=== PATIENT | female | born 1945 | race Caucasian/White ===

== ENCOUNTER 2017-08-31 16:24 | Emergency (ER) | payer MEDICARE ==
[~2017-08-31 16:24] MED LIST: Iopamidol 370 76% 100 ML VIAL ONE
[2017-08-31 17:21] LABS: #Basophils 0.1 thou/uL (0.0-0.2); #Eosinphils 0.4 thou/uL (0.0-0.7); #Lymphocytes 2.1 thou/uL (1.20-3.40); #Monocytes 0.6 thou/uL (0.11-0.59); #Neutrophils 3.4 thou/uL (1.40-6.50); %Basophils 0.8 % (0.0-1.0); %Eosinophils 5.9 % (0.0-10.0); %Lymphocytes 31.8 % (21.0-51.0); %Monocytes 8.8 % (0.0-10.0); %Neutrophils 52.7 % (42.0-75.0); Hemoglobin 13.1 g/dL (12.0-16.0); Mean Corpuscular HGB CONC 33.8 g/dL (32.0-36.0); Mean Corpuscular Hemoglobin 30.9 pg (27.0-31.0); Mean Corpuscular Volume 91.3 fl (81.0-99.0); Mean Platelet Volume 6.7 fL (7.4-10.4); Platelet Count 275 thou/uL (130-400); RBC Distribution Width 11.4 % (11.5-14.5); Red Blood Cell (RBC) Count 4.24 mill/uL (4.20-5.40); White Blood Cell (WBC) Count 6.5 thou/uL (4.8-10.8)
[2017-08-31 17:41] LABS: ALT (SGPT) 15 U/L (8-55); AST (SGOT) 16 U/L (5-34); Albumin 4.5 g/dL (3.4-4.8); Alkaline Phosphatase 75 U/L (40-150); Anion Gap 14 mmol/L (10-20); BUN (Urea Nitrogen) 16 mg/dL (9.8-20.1); Bilirubin, Total 0.6 mg/dL (0.2-1.2); Calc. Creatinine Clearance 0 mL/min (70-130); Calcium 10.2 mg/dL (7.8-10.44); Carbon Dioxide 29 mmol/L (23-31); Chloride 101 mmol/L (98-107); Estimated GFR-MDRD 47; Globulin 2.8 g/dL (2.4-3.5); Glucose 149 mg/dL (83-110); Potassium 3.8 mmol/L (3.5-5.1); Protein, Total 7.3 g/dL (6.0-8.3); Sodium 140 mmol/L (136-145)
[2017-08-31 18:18] LABS: CKMB 5.2 ng/mL (0-6.6); Troponin I Less than 0.010 ng/mL (< 0.028)
--- NOTE | 2017-08-31 20:06 | CT ---
CT OF THE CHEST WITH IV CONTRAST AND 3D POSTPROCESSING CT OF THE ABDOMEN WITH IV CONTRAST AND 3D POSTPROCESSIN08/31/17 HISTORY: Abdominal pain. Aortic aneurysm. FINDINGS: There is a 5.5 cm infrarenal abdominal aortic aneurysm with mural thrombus. No dissection is seen. Th e delayed images demonstrate no change in size or extravascular extravasation. No periaortic soft tis trinity density or hemorrhage is seen. There are bullous changes in the lungs. No pericardial or pleural effusions are identified. There is evidence of old granulomatous disease in the thorax, liver and spleen. No free air or free fluid is s een in the abdomen. No calcified gallstones are identified. Adrenal glands and kidneys are normal. Th ere are postop changes in the lumbar spine. IMPRESSION: 5.5 cm infrarenal abdominal aortic aneurysm. POS: CHETNA
== END 2017-08-31 20:45 | disposition home or self-care (01) ==
LOC: ERS 16:24
DX: I71.4 Abdominal aortic aneurysm, without rupture (principal); I10 Essential (primary) hypertension; Z79.899 Other long term (current) drug therapy; Z79.82 Long term (current) use of aspirin
CPT/HCPCS: 71275; 80053; 82553; 84484; 85025; 85730; 86850; 86900; 86901; 93005

== ENCOUNTER 2017-09-04 16:50 | Outpatient (CLI) | payer MEDICARE ==
--- NOTE | 2017-09-04 18:48 | CT ---
CT ANGIOGRAM OF THE ABDOMEN AND PELVIS WITH AND WITHOUT CONTRAST 09/04/17 COMPARISON: 08/31/17. HISTORY: Abdominal aortic aneurysm noted on recent CT, pain. TECHNIQUE: Serial axial CT imaging at 2.5 mm intervals from the lung bases through the pubic symphysis with and without IV contrast. Coronal and sagittal 3D reformatted imaging of the postcontrast images provided. FINDINGS: The imaged lung bases demonstrate no acute findings. Lung parenchyma is better assessed on the 8 CT. Precontrast imaging demonstrates no evidence for nephrolithiasis on either side. No free intraperitoneal air or fluid is seen. There is scattered atherosclerotic calcifications as well as scattered noncalcified plaque within the distal aspect of the thoracic aorta. At the level of the diaphragmatic hiatus, the abdominal aorta m easures 3.3 x 3.5 cm in AP/transverse dimension. Evaluation of the viscera is limited secondary to timing of the contrast bolus to maximize arterial e nhancement. Splenic granulomata noted. No acute findings are seen within the liver, gallbladder, panc reas, adrenals glands, or kidneys. The right kidney is relatively small compared to the left. There i s fatty atrophy of the pancreas. Limited assessment of the bowel without oral contrast media demonstrates sigmoid diverticulosis. No e vidence for bowel inflammatory change or obstruction. The imaged upper right thigh demonstrates a subcutaneous cyst laterally on the right measuring 2.6 cm . No retroperitoneal, pelvic or mesenteric lymphadenopathy is seen. The celiac artery origin is patent with no hemodynamically significant stenosis. However, there is an area of kinking involving the proximal aspect of the celiac access approximately 2.3 cm beyond its o rigin where there is a focal area of severe narrowing of the celiac axis. The superior mesenteric art cadence is patent with no hemodynamically significant stenosis seen. There are two patent left renal arteries, emanating from the abdominal aorta on image 47 and 50 respe ctively. A patent right renal artery is seen on axial image 49 with a probably tiny accessory right r enal artery seen on image 53. At the axial level of the SMA origin, the abdominal aorta measures 2.7 cm in transverse dimension. At the level of the renal artery origins, the abdominal aorta measures 3. 5 x 3.7 cm. there is prominent aneurysmal dilatation of the infrarenal abdominal aorta, aneurysm nani uring up to 5.3 x 5.4 cm. There is a large amount of eccentric plaque within the aneurysm, the contra st opacified portion of the aneurysm measuring in the 2.8 x 2.8 cm range. Aneurysm extends to the lev el of the abdominal aortic bifurcation. The common iliac arteries are patent, heavily calcified and t ortuous, particularly on the right. Bilateral internal and external iliac arteries are patent. The co mmon femoral arteries, and demonstrate relatively mild atherosclerotic calcification. Review of the osseous structures demonstrate a prominent multilevel degenerative change within the mi d/lower thoracic spine as well as throughout the lumbar spine. Postoperative hardware is seen at the L3, L4, L5, and S1 levels. No acute osseous abnormality. IMPRESSION: Extensive aneurysmal dilatation of the abdominal aorta, which measures up to 5.4 x 5.2 cm in the infr arenal region. POS: SANDRA
== END 2017-09-04 16:51 | disposition home or self-care (01) ==
LOC: CT 16:50
PROVIDERS: ATTEND Thoracic Surgery (Cardiothoracic Vascular Surgery)
DX: I71.4 Abdominal aortic aneurysm, without rupture (principal)
CPT/HCPCS: 74174

== ENCOUNTER 2017-10-04 10:00 | Inpatient (IN) | payer MEDICARE ==
[2017-10-04 11:08] LABS: Hemoglobin 12.6 g/dL (12.0-16.0); Mean Corpuscular HGB CONC 33.9 g/dL (32.0-36.0); Mean Corpuscular Hemoglobin 31.3 pg (27.0-31.0); Mean Corpuscular Volume 92.5 fl (81.0-99.0); Mean Platelet Volume 7.2 fL (7.4-10.4); Platelet Count 214 thou/uL (130-400); RBC Distribution Width 11.4 % (11.5-14.5); Red Blood Cell (RBC) Count 4.01 mill/uL (4.20-5.40); White Blood Cell (WBC) Count 5.7 thou/uL (4.8-10.8)
[2017-10-04 11:26] LABS: Anion Gap 12 mmol/L (10-20); BUN (Urea Nitrogen) 21 mg/dL (9.8-20.1); Calc. Creatinine Clearance 0 mL/min (70-130); Calcium 9.8 mg/dL (7.8-10.44); Carbon Dioxide 25 mmol/L (23-31); Chloride 106 mmol/L (98-107); Estimated GFR-MDRD 57; Glucose 99 mg/dL (83-110); Potassium 4.7 mmol/L (3.5-5.1); Sodium 138 mmol/L (136-145)
[2017-10-09] MEDS ORDERED: CEFAZOLIN/Water 2 GM/20 ML SYRINGE ONE (08:41)
[2017-10-09] MEDS ORDERED: Fentanyl 250 MCG/5 ML VIAL ONE (09:38)
[2017-10-09] MEDS ORDERED: Heparin 10,000 UNITS/1 ML VIAL 30,000 UNITS in Sodium Chloride 0.9% 1,000 ML FS SCH (09:40)
[2017-10-09] MEDS ORDERED: Sodium Chloride 0.9% 20 ML ONE (10:09)
[2017-10-09] MEDS ORDERED: Protamine Sulfate 50 MG/5 ML VIAL ONE (12:49)
--- NOTE | 2017-10-09 13:59 | OP ---
DATE OF PROCEDURE: 10/09/2017 PREOPERATIVE DIAGNOSIS: Abdominal aortic aneurysm. POSTOPERATIVE DIAGNOSIS: Abdominal aortic aneurysm. PROCEDURE: Aortic aneurysm repair with a straight #18 Hemashield graft. SURGEON: Jovany Arevalo M.D. CISSP: Dr. Martin Baldwin PROCEDURE IN DETAIL: After adequate anesthesia had been obtained, she was prepped and draped. Midli ne abdominal incision carried out. The bowel was rotated to the right and self-retaining retractor w as placed. The peritoneum overlying the aorta was incised and with the Bovie it was extended superio rly and inferiorly. Control of both common iliacs was obtained and then superiorly the aorta was con trolled just at the level of the left accessory renal artery. Following systemic heparinization, cla mps were applied just below the left accessory renal artery and both common iliacs. Four large lumba r arteries with significant bleeding were oversewn with silk sutures and this accounted for almost th e entire blood loss. Following this, a Hemashield graft was chosen and a proximal anastomosis perfor med with a 4-0 Prolene suture using interrupted pledgeted sutures on the posterior row as the aorta w as rather thin and then a running stitch anteriorly. Additional posterior sutures were required and after a good hemostatic suture line was completed, a running 4-0 Prolene suture was done at the dista l aorta just above the iliac bifurcation. Vessels were back flushed and forward flushed, following w hich flow was restored and then protamine was given systemically. After obtaining good hemostasis, t he aneurysm was closed over the graft and then reperitonealization was carried out. The bowel was re turned to the abdomen and a double stranded PDS suture was used to close the fascia. Subcutaneous ti ssue and skin were closed in layers and the patient is to be taken to the recovery room in [facility].
[2017-10-09] MEDS ORDERED: Nitroglycerin 50 MG/250 ML BOT 250 ML IVPB SCH (14:00)
[2017-10-09] MEDS ORDERED: Fentanyl 100 MCG/2 ML VIAL ONE ×4 (14:22→15:50)
[2017-10-09] MEDS ORDERED: HYDROmorphone 2 MG/ML VIAL SLOW IVP PRN (14:33)
[2017-10-09] MEDS ORDERED: Promethazine HCl 25 MG/ML VIAL IM PRN ×3 (14:33→16:37)
[2017-10-09] MEDS ORDERED: Ondansetron HCl/PF 4 MG/2 ML Vial IVP PRN ×2 (14:33→16:37)
[2017-10-09] MEDS ORDERED: Promethazine HCl 25 MG/ML VIAL SLOW IVP PRN ×2 (14:33→17:31)
[2017-10-09] MEDS ORDERED: Naloxone HCl 0.4 mg/ml Vial IV PRN (14:51)
[2017-10-09] MEDS ORDERED: diphenhydrAMINE 50 MG/ML VIAL IVP PRN (14:51)
[2017-10-09] MEDS ORDERED: diphenhydrAMINE 25 MG CAP PO PRN (14:51)
[2017-10-09] MEDS ORDERED: diphenhydrAMINE 50 MG/ML VIAL IM PRN (14:51)
[2017-10-09] MEDS ORDERED: Zolpidem Tartrate 5 MG TAB PO PRN (14:51)
[2017-10-09] MEDS ORDERED: Fentanyl 5000 MCG/250 ML CADD IVPB PRN (14:51)
[2017-10-09] MEDS ORDERED: Communication Order-Pharmacy FS SCH (15:00)
[2017-10-09] MEDS ORDERED: fentaNYL Citrate/PF 2,000 MCG in Sodium Chloride 0.9% 60 ML IV PRN (15:15)
[2017-10-09] MEDS ORDERED: PROPOFOL 200 MG/20 ML VIAL ONE (15:54)
[2017-10-09] MEDS ORDERED: Heparin 10,000 UNITS/ 10 ML VIAL ONE (15:54)
[2017-10-09] MEDS ORDERED: ePHEDrine/0.9% NaCl/PF SYRINGE 50 mg/10 ml ONE (15:54)
[2017-10-09] MEDS ORDERED: Protamine Sulfate 250 MG/25 ML VIAL ONE (15:54)
[2017-10-09] MEDS ORDERED: Nitroglycerin 50 MG/250 ML BOT ONE (15:54)
[2017-10-09] MEDS ORDERED: Labetalol 100 MG/20 ML MDV ONE (15:54)
[2017-10-09] MEDS ORDERED: Dexamethasone 20 MG/5 ML VIAL ONE (15:54)
[2017-10-09] MEDS ORDERED: Ondansetron HCl/PF 4 MG/2 ML Vial ONE (15:54)
[2017-10-09] MEDS ORDERED: Lidocaine 1% PF 5 ML VIAL ONE (15:54)
[2017-10-09 16:26] VITALS: BMI 31.5
[2017-10-09] MEDS ORDERED: Ketorolac Tromethamine 30 MG/ML VIAL IVP PRN (16:37)
[2017-10-09] MEDS ORDERED: DOPamine 400 MG/D5W 250 ML 250 ML IVPB PRN (16:37)
[2017-10-09] MEDS ORDERED: Fentanyl 100 MCG/2 ML VIAL SLOW IVP PRN (16:37)
[2017-10-09] MEDS ORDERED: Acetaminophen 325 MG TAB PO PRN (16:37)
[2017-10-09] MEDS: Lactated Ringer's 1,000 ML IV SCH (17:24)
[2017-10-09] MEDS: CEFAZOLIN/Water 2 GM/20 ML SYRINGE SLOW IVP SCH (17:24)
[2017-10-09 18:07] LABS: Hemoglobin 13.3 g/dL (12.0-16.0); Platelet Count 193 thou/uL (130-400)
[2017-10-09 18:26] LABS: Anion Gap 13 mmol/L (10-20); BUN (Urea Nitrogen) 14 mg/dL (9.8-20.1); Calc. Creatinine Clearance 63 mL/min (70-130); Calcium 8.9 mg/dL (7.8-10.44); Carbon Dioxide 21 mmol/L (23-31); Chloride 107 mmol/L (98-107); Estimated GFR-MDRD 51; Glucose 185 mg/dL (83-110); Potassium 4.5 mmol/L (3.5-5.1); Sodium 136 mmol/L (136-145)
[2017-10-09] MEDS: Ondansetron HCl/PF 4 MG/2 ML Vial IVP PRN (18:33)
[2017-10-09] MEDS: Famotidine/PF 20 mg/2ml Vial SLOW IVP SCH (21:36)
[2017-10-10] MEDS: Lactated Ringer's 1,000 ML IV SCH ×3 (00:32→20:30)
[2017-10-10] MEDS: CEFAZOLIN/Water 2 GM/20 ML SYRINGE SLOW IVP SCH ×2 (01:26→09:42)
[2017-10-10 03:26] LABS: #Monocytes 1.1 thou/uL (0.11-0.59); #Neutrophils 12.4 thou/uL (1.40-6.50); %Basophils 0.2 % (0.0-1.0); %Eosinophils 0.1 % (0.0-10.0); %Lymphocytes 6.9 % (21.0-51.0); %Monocytes 7.7 % (0.0-10.0); %Neutrophils 85.1 % (42.0-75.0); Hemoglobin 12.2 g/dL (12.0-16.0); Mean Corpuscular HGB CONC 33.6 g/dL (32.0-36.0); Mean Corpuscular Hemoglobin 31.5 pg (27.0-31.0); Mean Corpuscular Volume 93.8 fl (81.0-99.0); Mean Platelet Volume 6.5 fL (7.4-10.4); Platelet Count 190 thou/uL (130-400); RBC Distribution Width 11.8 % (11.5-14.5); Red Blood Cell (RBC) Count 3.87 mill/uL (4.20-5.40); White Blood Cell (WBC) Count 14.5 thou/uL (4.8-10.8)
[2017-10-10 03:46] LABS: Anion Gap 14 mmol/L (10-20); BUN (Urea Nitrogen) 15 mg/dL (9.8-20.1); Calc. Creatinine Clearance 64 mL/min (70-130); Calcium 9.2 mg/dL (7.8-10.44); Carbon Dioxide 27 mmol/L (23-31); Chloride 104 mmol/L (98-107); Estimated GFR-MDRD 51; Glucose 141 mg/dL (83-110); Potassium 5.2 mmol/L (3.5-5.1); Sodium 140 mmol/L (136-145)
[2017-10-10] MEDS: Levothyroxine Sodium 25 MCG TAB PO SCH (07:38)
[2017-10-10] MEDS: Levothyroxine Sodium 112 MCG TAB PO SCH (07:38)
[2017-10-10] MEDS ORDERED: Non-Formulary Item 1 EACH (Levothyroxine Sodium [Levothyroxine Sodium] 137 MCG) PO SCH (09:00)
[2017-10-10] MEDS: Aspirin 81 mg Enteric Coated Tablet PO SCH (09:43)
[2017-10-10] MEDS: Famotidine/PF 20 mg/2ml Vial SLOW IVP SCH ×2 (09:43→20:29)
[2017-10-10] MEDS: Acetaminophen 1,000 MG in Premix Bag 1 BAG IVPB SCH ×3 (12:58→23:52)
[2017-10-10] MEDS: Ondansetron HCl/PF 4 MG/2 ML Vial IVP PRN (20:14)
[2017-10-10] MEDS: Enoxaparin Sodium 40 MG/0.4 ML SYRINGE SC SCH (20:29)
[2017-10-11] MEDS: Lactated Ringer's 1,000 ML IV SCH ×3 (00:53→13:45)
[2017-10-11] MEDS: Ondansetron ODT 4 MG TAB PO PRN (02:10)
[2017-10-11] MEDS: Acetaminophen 1,000 MG in Premix Bag 1 BAG IVPB SCH (05:52)
[2017-10-11] MEDS: Levothyroxine Sodium 25 MCG TAB PO SCH (05:56)
[2017-10-11] MEDS: Levothyroxine Sodium 112 MCG TAB PO SCH (05:56)
[2017-10-11 06:17] LABS: #Lymphocytes 1.1 thou/uL (1.20-3.40); #Neutrophils 8.9 thou/uL (1.40-6.50); %Basophils 0.2 % (0.0-1.0); %Eosinophils 0.3 % (0.0-10.0); %Lymphocytes 9.9 % (21.0-51.0); %Monocytes 8.7 % (0.0-10.0); %Neutrophils 80.9 % (42.0-75.0); Hemoglobin 10.8 g/dL (12.0-16.0); Mean Corpuscular HGB CONC 33.6 g/dL (32.0-36.0); Mean Corpuscular Hemoglobin 31.4 pg (27.0-31.0); Mean Corpuscular Volume 93.5 fl (81.0-99.0); Platelet Count 157 thou/uL (130-400); RBC Distribution Width 11.5 % (11.5-14.5); Red Blood Cell (RBC) Count 3.44 mill/uL (4.20-5.40)
[2017-10-11 06:40] LABS: Anion Gap 11 mmol/L (10-20); BUN (Urea Nitrogen) 12 mg/dL (9.8-20.1); Calc. Creatinine Clearance 96 mL/min (70-130); Calcium 9.4 mg/dL (7.8-10.44); Carbon Dioxide 29 mmol/L (23-31); Chloride 101 mmol/L (98-107); Estimated GFR-MDRD 70; Glucose 124 mg/dL (83-110); Potassium 4.6 mmol/L (3.5-5.1); Sodium 136 mmol/L (136-145)
[2017-10-11] MEDS: Famotidine/PF 20 mg/2ml Vial SLOW IVP SCH ×2 (09:12→20:39)
[2017-10-11] MEDS: Aspirin 81 mg Enteric Coated Tablet PO SCH (09:34)
[2017-10-11] MEDS: Enoxaparin Sodium 40 MG/0.4 ML SYRINGE SC SCH (20:39)
[2017-10-12] MEDS: Ondansetron ODT 4 MG TAB PO PRN ×2 (00:03→21:37)
[2017-10-12] MEDS: Levothyroxine Sodium 112 MCG TAB PO SCH (05:17)
[2017-10-12] MEDS: Levothyroxine Sodium 25 MCG TAB PO SCH (05:17)
[2017-10-12] MEDS: Lactated Ringer's 1,000 ML IV SCH (05:18)
[2017-10-12] MEDS ORDERED: Lactated Ringer's 1,000 ML IV SCH (05:59)
[2017-10-12] MEDS: Aspirin 81 mg Enteric Coated Tablet PO SCH (09:00)
[2017-10-12] MEDS: Famotidine/PF 20 mg/2ml Vial SLOW IVP SCH ×2 (09:00→21:20)
[2017-10-12] MEDS ORDERED: HYDROcodone/Acetaminophen 7.5/325 mg Tablet PO PRN ×2 (09:40)
[2017-10-12] MEDS ORDERED: traMADol HCl 50 MG TAB PO PRN (09:41)
[2017-10-12] MEDS: Lisinopril 10 MG TAB PO SCH (21:19)
[2017-10-12] MEDS: Enoxaparin Sodium 40 MG/0.4 ML SYRINGE SC SCH (21:20)
[2017-10-12] MEDS: traMADol HCl 50 MG TAB PO PRN (21:30)
[2017-10-13] MEDS: Ondansetron ODT 4 MG TAB PO PRN (04:01)
[2017-10-13] MEDS: Levothyroxine Sodium 25 MCG TAB PO SCH (05:38)
[2017-10-13] MEDS: Levothyroxine Sodium 112 MCG TAB PO SCH (05:39)
[2017-10-13] MEDS: Lisinopril 10 MG TAB PO SCH ×4 (09:23→21:54)
[2017-10-13] MEDS: Aspirin 81 mg Enteric Coated Tablet PO SCH (09:24)
[2017-10-13] MEDS: traMADol HCl 50 MG TAB PO PRN (11:59)
[2017-10-13] MEDS: Famotidine/PF 20 mg/2ml Vial SLOW IVP SCH ×2 (12:02→21:54)
[2017-10-13] MEDS: Enoxaparin Sodium 40 MG/0.4 ML SYRINGE SC SCH (21:54)
[2017-10-13] MEDS: Acetaminophen 325 MG TAB PO PRN (21:55)
[2017-10-14] MEDS: traMADol HCl 50 MG TAB PO PRN ×2 (04:40→10:58)
[2017-10-14] MEDS: Acetaminophen 325 MG TAB PO PRN ×2 (04:40→09:37)
[2017-10-14] MEDS: Levothyroxine Sodium 25 MCG TAB PO SCH (06:02)
[2017-10-14] MEDS: Levothyroxine Sodium 112 MCG TAB PO SCH (06:02)
[2017-10-14 08:22] VITALS: BP 117/77; TEMP 98.3
[2017-10-14] MEDS: Aspirin 81 mg Enteric Coated Tablet PO SCH (09:32)
[2017-10-14] MEDS: Lisinopril 10 MG TAB PO SCH (09:32)
[2017-10-14] MEDS: Famotidine/PF 20 mg/2ml Vial SLOW IVP SCH (10:48)
--- NOTE | 2017-10-14 17:19 | DIS ---
DATE OF ADMISSION: 10/09/2017 DATE OF DISCHARGE: 10/14/2017 DIAGNOSES: Abdominal aortic aneurysm. PROCEDURES: Open abdominal aortic aneurysm repair with a #18 straight Hemashield graft. DESCRIPTION OF PROCEDURE: Ms. Jackson was brought in for elective aneurysm repair. She has done wel l postoperatively without issue and being discharged to home. DISCHARGE MEDICATIONS: Unchanged from her home regimen with the exception of the addition of Ultram 50 mg 1-2 p.o. q.6 hours p.r.n. pain.
--- NOTE | 2017-10-19 07:22 | PQF ---
KM GRACE JAMES M MD [id number] SURG A- [id number] CLINICAL DOCUMENTATION CLARIFICATION FORM: POST DISCHARGE DATE: 10/19/2017 ATTN: Dr. Arevalo Please exercise your independent, professional judgment in responding to the clarification form. Clinical indicators are provided on the bottom of this form for your review Please clarify if bleeding lumbar arteries were: Please check appropriate box(s): [ ] Bleeding lumbar arteries were a complication of the procedure [ ] Bleeding lumbar arteries were not a complication of the procedure [ ] Other diagnosis (please specify) ] Unable to determine In addition, please specify: Present on Admission (POA): [ ] Yes [ ] No [ ] Unable to determine For continuity of documentation, please document condition throughout progress notes and discharge summary. Thank You. CLINICAL INDICATORS - SIGNS / SYMPTOMS / LABS Per operative report: Four large lumbar arteries with significant bleeding were oversewn with silk sutures and this accounted for almost the entire blood loss. RISK FACTORS Per operative report: Abdominal aortic aneurysm. TREATMENTS: Per operative report: Aortic aneurysm repair with a straight #18 Hemashield graft. Oversew of bleeding lumbar arteries. (This form is maintained as a part of the permanent medical record) 2014 [employer] All Rights Reserved [email or web address] [phone] [email or web address]
== END 2017-10-14 11:22 | disposition home or self-care (01) | DRG 272 ==
LOC: SURG A 10-09 07:28 → CCU 10-09 15:15 → SURG A 10-11 07:41
PROVIDERS: ADMIT Thoracic Surgery (Cardiothoracic Vascular Surgery); ATTEND Thoracic Surgery (Cardiothoracic Vascular Surgery)
PROC: 04V00DZ Restriction of Abdominal Aorta with Intraluminal Device, Open Approach (ICD-10-PCS; principal; 2017-10-09)
DX: I71.4 Abdominal aortic aneurysm, without rupture (principal); I10 Essential (primary) hypertension; E78.5 Hyperlipidemia, unspecified; E66.3 Overweight; Z68.35 Body mass index [BMI] 35.0-35.9, adult; Z86.73 Personal history of transient ischemic attack (TIA), and cerebral infarction without residual deficits; Z87.891 Personal history of nicotine dependence; Z79.02 Long term (current) use of antithrombotics/antiplatelets; Z79.82 Long term (current) use of aspirin; Z79.899 Other long term (current) drug therapy
CPT/HCPCS: 36415; 36430; 80048; 85014; 85018; 85025; 85027; 85049; 86850; 86900; 86901; A4216; G8978-GP-CM; G8979-GP-CI; J0131; J1100; J1642; J1644; J1650; J2001; J2405; J2550; J2704; J2720; J3010; J7050; P9016; Q0162; S0028

== ENCOUNTER 2017-10-04 10:14 | Outpatient (CLI) | payer MEDICARE ==
[2017-10-04 11:08] LABS: Hemoglobin 12.6 g/dL (12.0-16.0); Mean Corpuscular HGB CONC 33.9 g/dL (32.0-36.0); Mean Corpuscular Hemoglobin 31.3 pg (27.0-31.0); Mean Corpuscular Volume 92.5 fl (81.0-99.0); Mean Platelet Volume 7.2 fL (7.4-10.4); Platelet Count 214 thou/uL (130-400); RBC Distribution Width 11.4 % (11.5-14.5); Red Blood Cell (RBC) Count 4.01 mill/uL (4.20-5.40); White Blood Cell (WBC) Count 5.7 thou/uL (4.8-10.8)
[2017-10-04 11:26] LABS: Anion Gap 12 mmol/L (10-20); BUN (Urea Nitrogen) 21 mg/dL (9.8-20.1); Calc. Creatinine Clearance 0 mL/min (70-130); Calcium 9.8 mg/dL (7.8-10.44); Carbon Dioxide 25 mmol/L (23-31); Chloride 106 mmol/L (98-107); Estimated GFR-MDRD 57; Glucose 99 mg/dL (83-110); Potassium 4.7 mmol/L (3.5-5.1); Sodium 138 mmol/L (136-145)
== END 2017-10-04 10:15 | disposition home or self-care (01) ==
LOC: LABBT 10:14
PROVIDERS: ATTEND Thoracic Surgery (Cardiothoracic Vascular Surgery)
DX: Z01.818 Encounter for other preprocedural examination (principal); I71.4 Abdominal aortic aneurysm, without rupture
CPT/HCPCS: 80048; 85027; 86850; 86900; 86901; 93005; 93010